=== PATIENT | female | born 2000 | race Caucasian/White ===

== ENCOUNTER 2021-06-10 14:18 | Emergency (ER) | payer MEDICAID ==
[~2021-06-10] VITALS: Ht 180.3 cm; Wt 127.0 kg
[2021-06-10] MEDS ORDERED: IBUPROFEN 600MG TABLET PO ONE (14:45)
[2021-06-10] MEDS ORDERED: IBUP-2028 MT (15:49)
[2021-06-10 16:03] VITALS: BP 140/78
== END 2021-06-10 16:00 | disposition home or self-care (01) ==
LOC: ER 15:22
DX: S93.491A Sprain of other ligament of right ankle, initial encounter (principal); S93.691A Other sprain of right foot, initial encounter; J45.909 Unspecified asthma, uncomplicated; W50.2XXA Accidental twist by another person, initial encounter; Y93.89 Activity, other specified; Y92.89 Other specified places as the place of occurrence of the external cause; Y99.8 Other external cause status
CPT/HCPCS: 73610; 73630; 99284

== ENCOUNTER 2022-07-04 18:51 | Emergency (ER) | payer MEDICAID ==
[~2022-07-04] VITALS: Ht 185.4 cm; Wt 136.0 kg
[~2022-07-04 18:51] MED LIST: IBUP-2028 MT
[2022-07-04 19:07] VITALS: BP 141/78
[2022-07-04] MEDS ORDERED: ACETAMINOPHEN 325MG TABLET PO PRN (21:15)
[2022-07-04 21:38] LABS: CLARITY URINE CLOUDY (CLEAR); COLOR URINE DARK YELLOW (YELLOW); KETONES URINE 1+ (NEGATIVE); LEUKOCYTE ESTERASE URINE NEGATIVE (NEGATIVE); NITRITE URINE NEGATIVE (NEGATIVE); OCCULT BLOOD URINE NEGATIVE (NEGATIVE); PH URINE 6.5 (4.5-8.0); PROTEIN URINE TRACE (NEGATIVE); SPECIFIC GRAVITY URINE 1.035 (1.005-1.030)
[2022-07-04 22:44] LABS: CHLORIDE 106 mEq/L (98-107)
[2022-07-04 22:47] LABS: BASOPHILS % 0.3 % (0.0-2.0); EOSINOPHILS % 1.4 % (0.0-5.0); HEMATOCRIT. 33.8 % (36.0-48.0); HEMOGLOBIN. 10.9 g/dL (12.0-16.0); MEAN CORPUSCULAR HEMOGLOBIN 25.5 pg (28.0-32.0); MEAN PLATELET VOLUME 9.1 fl (7.4-10.4); MONOCYTES % 4.7 % (2.0-8.0); NEUTROPHILS % 53.6 % (40.0-76.0); PLATELET 256 x1000/uL (130-400); RED BLOOD CELL COUNT 4.28 mill/uL (4.2-5.4)
[2022-07-04 23:05] LABS: B-HCG QUANTITATIVE 34516 mIU/mL (<3)
[2022-07-04] MEDS ORDERED: PREN-52 MT (23:29)
[2022-07-04] MEDS ORDERED: CEPH500C2 MT (23:30)
[2022-07-04] MEDS ORDERED: PYRI25TA4 MT (23:36)
[2022-07-04] MEDS ORDERED: ONDANSETRON 4MG ODT PO ONE (23:45)
== END 2022-07-04 23:45 | disposition home or self-care (01) ==
LOC: ER 18:51
DX: O23.41 Unspecified infection of urinary tract in pregnancy, first trimester (principal); N39.0 Urinary tract infection, site not specified; O99.011 Anemia complicating pregnancy, first trimester; D64.9 Anemia, unspecified; Z3A.01 Less than 8 weeks gestation of pregnancy
CPT/HCPCS: 36415; 76801; 80053; 81003; 81025; 84702; 85025; 86850; 86900; 99284